=== PATIENT | male | born 1975 | race Caucasian/White ===

== ENCOUNTER 2021-03-21 10:18 | Outpatient (CLI) | payer OTHER, SELFPAY ==
[2021-03-21] MEDS: 0.9% Saline Lock 10 ML Syringe IV (10:36)
[2021-03-21 10:37] VITALS: BP 164/105; PULSE 75; RESP 16; TEMP 36.9; O2SAT 98; BMI 31.7
[2021-03-21 11:15] VITALS: BP 141/90; PULSE 65; RESP 16; TEMP 36.9; O2SAT 98
== END 2021-03-21 16:00 | disposition home or self-care (01) ==
LOC: ICUOUT 10:19 → MS3 10:19
PROVIDERS: PCP Nurse Practitioner Adult Health; Referring Provider Nurse Practitioner Adult Health; Visit Provider Nurse Practitioner Adult Health
DX: Z23 Encounter for immunization (principal); U07.1 COVID-19
CPT/HCPCS: J7050; M0243; A4216; Q0244

== ENCOUNTER 2022-01-29 08:00 | Outpatient (RCR) | payer OTHER, SELFPAY ==
--- NOTE | 2021-12-25 08:58 | HP.PTEVAL ---
Patient's Visit Information FARIBA JIMENEZ is a 46 year old M referred to Physical Therapy by Dr. Frances Chakraborty MD with a diagnosis of vertigo. Date of Evaluation: 12/25/21 Physical Therapist: Fabricio Rivera, EVAT, OCS, CSCS - Visit Plan Frequency: 1-2x /Week Duration: 4-6 Weeks Plan: 1-2x/week for 4 weeks as needed for adaptation and habituation progression and monitor need for balance ex. - Subjective Back surgery 3 weeks ago. Woke up a week ago with spinning out of nowhere. Woke up took meds and woke up at noon and was spinning. Had not moved yet. Was sleeping on back or side. Lying down vertigo is good. Has been given meclizine and valium. Was in ER with this as he could not lift head. Had scans of head and no problems. Laid in bed all day and was worse the next day. Slightly better in the hospital that day with drugs. Now can lie down comfortably, Sitting better but walking and head movements make him wobbly. Not spinning but feels wonky. Still gets a little nauseous if up too much. 10x better than it was but not great. Sleep is OK with valium. 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 Spending time in bed right now and the back is the main cause of that. - Pain LBP Pain Intensity (Out of 10): 8 Pain Intensity Range: 0 Comment: meds were helping when he could take. - Objective Walks hunched over with wh walker safe and Mod I but obviously minimizing head movement and miserable through busy gy,. Trasnfers slow but steady due to back care. Balance in standing is funcitonal but cautious without AD. Cervical aROM is slow and hesitant but full without pain once gets there. - B HD and - roll test. Oculomotor: no nystagmus with gaze and head shake. - ocular tilt. - skew eye deviation. L head thrust +. - R head thrust. Saccades normal and asymptomatic. Purusit normal. convergence normal. VOR miserable to 7/10 after 30 seconds horizontal and recover in less than one minute. Slow head turns but no nystagmus - Balance/Special Test Scores Dizziness Score: y - Goals Goal 1:: abolish vertigo Goal Time Frame: 2-4 Weeks Goal 2:: Patient able to ambukate through busy gym without AD Goal Time Frame: 2-4 Weeks Goal 3:: 30/30 FGA Goal Time Frame: 2-4 Weeks Goal 4:: Pt feel 100% back to normal with vertigo synmptoms Goal Time Frame: 2-4 Weeks Goal 5:: <20 DHI score Goal Time Frame: 4-6 Weeks - Rehabilitation Potential Physical Therapy Diagnosis: Liekly unilateral vestibular hypofunction Rehabilitation Potential: Fair - Anticipated Interventions Patient/Client Instruction: Educate patient on: Condition, Plan of Care For the Purpose of:: To increase tolerance to activity/condition/position, To improve gait and locomotor functions Therapeutic Exercise to Include: Balance training Comment: adaptation adn habituation For the Purpose of:: To increase tolerance to activity/condition/position, To improve ability of physical actions for home/community/work/leisure, To improve gait and locomotor functions, To improve balance Thank you for the opportunity to evaluate your patient. For Medicare and Medicare HMO plans, please review the plan of care and approve it. It will need to be FAXED BACK to us at [phone] for Medicare purposes. For Medicare only, by signing this I certify the plan of care. Please let me know if there are questions or concerns regarding this plan of care. Physician Signature: Date:
--- NOTE | 2022-02-12 09:28 | HP.PTDCSUM ---
It has been my pleasure to treat FARIBA JIMENEZ referred by Dr. Frances Chakraborty MD, with the diagnosis of vertigo for a total of 6 visit(s). Discharge Date: 02/12/22 Please see the following information for a summary of their discharge status. Subjective: Did fine with the exercise. head turning left not improving. Described as crazy fir a second and then gone. Same intensity , same duration. Has to be careful with left head turns. Will call dr. Chakraborty(family doctor today) Will reutrn to work Sept 1 after back surgery adn will be light duty. Will be sitting at computer . 10/04 wonkiness with quick head turns is immediately transient. No falls and balance is OK except on grass. LBP Pain Intensity (Out of 10): Unrated % Improvement: 80 Objective/Function: Safe adn good balance ambulating even with head movements and VORx2 but l head turns still make him transiently dizzy for a second. head turns sitting and head body turns on still give same dizzy feeling for a quick second. This is functional as he does not avoid activity due to this but annoying for a second. is areful with left head turns. Goal 1:: abolish vertigo Goal Progress: Not Progressing Goal 2:: Patient able to ambukate through busy gym without AD Goal Progress: Goal Met Goal 3:: FGA Goal Progress: Goal Met Goal 4:: Pt feel 100% back to normal with vertigo synmptoms Goal Progress: 80%, no progress lately Goal 5:: <20 DHI score Goal Progress: Progressing Plan: recommend return to doctor for next step/opinion. Possibly appropriate for VNG test /ENT consult. d/c PT at this time. Discharge Comments: Pt did well initially and is 80% better but slight quick dizzy with head turns left persist and I recommended f/u with referring doctor for next medical step(VNG, ENT?) as necessary. If there are questions or concerns regarding this patient's physical therapy, please feel free to call me at [phone]. Thank you for the referral of this patient. Sincerely, Fabricio Rivera, DPT, OCS, CSCS Balance/Gait/Functional tests - Balance/Special Test Scores Functional Gait Assessment Score: 30 % Disability: 0 Dizziness Score: 24
== END 2022-01-29 19:00 | disposition home or self-care (01) ==
LOC: PT 08:00
PROVIDERS: PCP Nurse Practitioner Adult Health; Referring Provider Family Medicine; Visit Provider Family Medicine
DX: R42 Dizziness and giddiness (principal)
CPT/HCPCS: 97110; 97162; 97530